=== PATIENT | female | born 1945 | race Caucasian/White ===

== ENCOUNTER 2017-07-16 22:15 | Emergency (ER) | payer MEDICARE, MEDICAID ==
[2017-07-16] MEDS ORDERED: HYDROCHLOROTHIAZIDE 25 MG TABLET PO ONE (22:31)
[2017-07-16] MEDS ORDERED: METOPROLOL TART 25 MG TABLET PO ONE (22:32)
--- NOTE | 2017-07-16 22:32 | Emergency Department Record ---
History of Present Illness - General Chief Complaint: Hypertension Stated Complaint: HIGH BP Time Seen by Provider: 07/16/17 22:22 Source: Patient Mode of Arrival: Ambulatory Limitations: No limitations - History of Present Illness Initial Comments: The patient is here due to feeling anxious about her blood pressure. She decided to stop all of her BP medicines 4 days ago and then today noticed her BP was elevated. She became anxious this evening about it and called her daughter who brought her to the ER for it. The patient does complain of a mild SANTOS but denies any CP, SOB, sweating, or nausea. She is feeling slightly "tingly " all over but attributes that to anxiety. MD Complaint: Other Onset/Timin -: Days(s) - [place] Coma Scale Eye Response: (4) Open spontaneously Motor Response: (6) Obeys commands Verbal Response: (5) Oriented [place] Total: 15 - Related Data Home Medications Medication Instructions Recorded Confirmed Last Taken Aspirin [Aspir-Low] 81 mg PO DAILY 07/16/17 07/16/17 Unknown Cholecalciferol (Vitamin D3) 2,000 unit PO DAILY 07/16/17 07/16/17 Unknown [Vitamin D3] Losartan/Hydrochlorothiazide 1 each PO DAILY 07/16/17 07/16/17 Unknown [Losartan-Hctz 100-25 mg Tab] Nebivolol HCl [Bystolic] 5 mg PO DAILY 07/16/17 07/16/17 Unknown Pratt-3 Fatty Acids [Pratt-3] 1,000 mg PO DAILY 07/16/17 07/16/17 Unknown Pravastatin Sodium [Pravachol] 20 mg PO DAILY 07/16/17 07/16/17 Unknown Previous Rx's Medication Instructions Recorded Losartan/Hydrochlorothiazide 1 each PO DAILY #30 tablet 07/16/17 [Hyzaar 100-25 Tablet] Nebivolol HCl [Bystolic] 5 mg PO DAILY #30 tablet 07/16/17 Allergies Allergy/AdvReac Type Severity Reaction Status Date / Time No Known Drug Allergies Allergy Verified 07/16/17 22:26 Travel Screening - Travel/Exposure Within Last 30 Days Have you traveled within the last 30 days?: No - Travel/Exposure Within Last Year Have you traveled outside the [place] in the last year?: No - Additonal Travel Details Have you been exposed to anyone with a communicable illness?: No - Travel Symptoms Symptom Screening: None Review of Systems Constitutional: Denies: Chills, Fever Eyes: Denies: Eye discharge ENT: Denies: Congestion Respiratory: Denies: Cough, Dyspnea Cardiovascular: Denies: Chest pain Past Medical History - SOCIAL HISTORY Smoking Status: Former smoker Alcohol Use: None Drug Use: None - RESPIRATORY Hx Respiratory Disorders: No - CARDIOVASCULAR Hx Cardio Disorders: Yes Hx Cardiac Cath: Yes (2005) Hx Heart Attack: Yes - NEURO Hx Neuro Disorders: No - GI Hx GI Disorders: No - Hx Genitourinary Disorders: No - ENDOCRINE Hx Endocrine Disorders: No - MUSCULOSKELETAL Hx Musculoskeletal Disorders: No - PSYCH Hx Psych Problems: No - HEMATOLOGY/ONCOLOGY Hx Hematology/Oncology Disorders: No Family Medical History Any Significant Family History?: No Physical Exam - General General Appearance: Alert, Oriented x3, Cooperative, No acute distress (The patient is very pleasant, smiling, and cooperative. ) - Head Head exam: Atraumatic, Normocephalic - Eye Eye exam: Normal appearance, PERRL - Neck Neck exam: Normal inspection, Full ROM. negative: Tenderness - Respiratory Respiratory exam: Normal lung sounds bilaterally. negative: Respiratory distress - Cardiovascular Cardiovascular Exam: Regular rate, Normal rhythm, Normal heart sounds - GI/Abdominal GI/Abdominal exam: Soft, Normal bowel sounds. negative: Tenderness - Extremities Extremities exam: Normal inspection, Full ROM, Normal capillary refill. negative: Tenderness - Neurological Neurological exam: Alert. negative: Motor sensory deficit Course Vital Signs 07/16/17 07/16/17 22:16 22:21 Temperature 97.9 F Pulse Rate [ 88 Pulse Ox Probe] Respiratory 20 Rate Blood Pressure 220/102 Blood Pressure 220/102 [Left Arm] Pulse Ox 95 - Reevaluation(s) Reevaluation #1: The patient is doing much better at this time. I did discuss the mildly elevated serum creatinine with the patient and the need for F/U this week. She is to monitor her blood pressure and bring the results to Dr. Alcala. The patient 's blood pressure is improved and due to the fact she is completely asymptomatic I do feel the medicine will continue to work and she is stable for discharge. 07/16/17 23:25 Medical Decision Making - Lab Data Result diagrams: 07/16/17 22:37 07/16/17 22:37 Disposition Disposition: Discharge Clinical Impression: Hypertension Qualifiers: Hypertension type: unspecified Qualified Code(s): I10 - Essential (primary) hypertension Disposition: Home, Self-Care Condition: (2) Stable Instructions: Hypertension (ED) Additional Instructions: Please continue your regular medicines. Please see your family doctor this week for recheck and to have your blood pressure evaluated further. ALso please bring your lab results to the appointment and discuss your mildly elevated serum creatinine. Return to the ER for any pain, trouble breathing, headache or visual changes. Prescriptions: Losartan/Hydrochlorothiazide [Hyzaar 100-25 Tablet] 1 each PO DAILY #30 tablet Nebivolol HCl [Bystolic] 5 mg PO DAILY #30 tablet Forms: Patient Portal Access Time of Disposition: 23:25 Quality - Quality Measures Quality Measures: N/A - Blood Pressure Screening View Details: Yes Does Patient Have Any of the Following: Active Dx of HTN Blood Pressure Classification: Hypertensive Reading Systolic Measurement: 220 Diastolic Measurement: 102 Screening for High Blood Pressure: Patient Exclusion, Hx of HTN [[id number]]
[2017-07-16] MEDS ORDERED: ACETAMINOPHEN 325 MG TAB PO ONE (22:41)
[2017-07-16 22:44] LABS: BASO % 0.6 % (0-6); EOS % 1.6 % (0-6); GRAN % 74.1 % (47-80); HEMATOCRIT 37.3 % (35.0-47.0); HEMOGLOBIN 11.6 gm/dl (11.6-16.0); LYMPH % 16.5 % (16-45); MEAN CELL VOLUME 86.5 fl (81-97); MEAN CORPUSCULAR HEMOGLOBIN 26.9 pg (27-33); MEAN CORPUSCULAR HGB CONC 31.1 g/dl (32-36); MEAN PLATELET VOLUME 10.1 fl (7.4-10.4); MONO % 7.2 % (0-9); PLATELET COUNT 194 K/uL (130-400); RED BLOOD COUNT 4.31 M/uL (3.80-5.40); RED CELL DISTRIBUTION WIDTH 13.6 % (11.5-14.5); WHITE BLOOD COUNT W/O DIFF 6.4 K/uL (4.2-12.2)
[2017-07-16] MEDS ORDERED: LOSARTAN POTASSIUM 100 MG TABLET PO SCH (22:45)
[2017-07-16 22:53] LABS: BILIRUBIN,TOTAL 0.5 mg/dL (0.2-1.0); CREATININE 1.2 mg/dL (0.5-0.9); TOTAL PROTEIN 6.7 g/dL (6.6-8.7)
[2017-07-16 22:58] LABS: ALB/GLOB RATIO 1.7 (1.1-1.8); ALBUMIN 4.2 g/dL (4.0-5.0)
== END 2017-07-16 23:32 | disposition home or self-care (01) ==
LOC: ER 22:15
DX: I10 Essential (primary) hypertension (principal); R51 Headache; R20.2 Paresthesia of skin; I25.2 Old myocardial infarction; F17.210 Nicotine dependence, cigarettes, uncomplicated
CPT/HCPCS: 80053; 85025; 99283